=== PATIENT | female | born 2000 | race Caucasian/White ===

== ENCOUNTER 2021-01-02 14:35 | Emergency (ER) | payer OTHER ==
[~2021-01-02] VITALS: Ht 157.5 cm; Wt 57.0 kg
[2021-01-02] MEDS ORDERED: ACETAMINOPHEN 325MG TABLET PO STA (18:16)
[2021-01-02] MEDS ORDERED: SODIUM CHLORIDE 0.9% 1,000 ML IV ONE (18:30)
[2021-01-02 18:37] LABS: BASOPHILS % 0.2 % (0.0-2.0); HEMATOCRIT. 40.5 % (36.0-48.0); HEMOGLOBIN. 13.7 g/dL (12.0-16.0); MEAN CORPUSCULAR HEMOGLOBIN 29.3 pg (28.0-32.0); MEAN CORPUSCULAR VOLUME 86.4 fL (81.0-99.0); MEAN PLATELET VOLUME 7.9 fl (7.4-10.4); MONOCYTES % 9.9 % (2.0-8.0); NEUTROPHILS % 64.9 % (40.0-76.0); PLATELET 421 x1000/uL (130-400); RED BLOOD CELL COUNT 4.68 mill/uL (4.2-5.4); RED CELL DISTRIBUTION WIDTH 12.8 % (11.6-14.6)
[2021-01-02 18:42] LABS: CHLORIDE 105 mEq/L (98-107)
[2021-01-02 18:48] LABS: HCG SCREEN NEGATIVE
[2021-01-02 18:49] LABS: CLARITY URINE CLEAR (CLEAR); COLOR URINE YELLOW (YELLOW); KETONES URINE TRACE (NEGATIVE); LEUKOCYTE ESTERASE URINE 1+ (NEGATIVE); NITRITE URINE NEGATIVE (NEGATIVE); OCCULT BLOOD URINE NEGATIVE (NEGATIVE); PH URINE 6.5 (4.5-8.0); PROTEIN URINE TRACE (NEGATIVE); SPECIFIC GRAVITY URINE 1.025 (1.005-1.030)
[2021-01-02] MEDS ORDERED: CEFTRIAXONE 1 G PREMIX 50 ML IV NR (19:15)
[2021-01-02 22:00] VITALS: BP 105/66
[2021-01-02] MEDS ORDERED: DOXY100C5 MT (22:21)
[2021-01-02] MEDS ORDERED: IOHEXOL-350 100 ML BOTTLE ONE (23:06)
== END 2021-01-02 22:56 | disposition home or self-care (01) ==
LOC: ER 14:35
DX: J18.9 Pneumonia, unspecified organism (principal); N39.0 Urinary tract infection, site not specified; R94.31 Abnormal electrocardiogram [ECG] [EKG]
CPT/HCPCS: 36415; 71045; 71275; 80053; 81003; 84484; 84703; 85025; 85379; 93005; 96361; 96365; 99285; J0696; J7030; Q9967